=== PATIENT | male | born 1960 | race Caucasian/White ===

== ENCOUNTER → 2022-08-24 | Outpatient (CLI) | payer OTHER ==
--- NOTE | 2022-08-24 16:51 | CT ---
EXAMINATION TYPE: CT angio neck DATE OF EXAM: 08/24/2022 HISTORY: Bilateral Carotid Stenosis. COMPARISON: None CT DLP: 231.8 mGycm. Automated Exposure Control for Dose Reduction was Utilized. TECHNIQUE: CTA scan of the neck is performed with IV Contrast, patient injected with 65cc mL of Isov ue 370, axial images are obtained, coronal and sagittal reformatted images are reviewed. Three-D radha nstructed images are created on an independent workstation and reviewed. Source images are reviewed. FINDINGS: Carotid/Vascular Structures: There is a three-vessel arch. Vertebral arteries are codominant. Common carotid arteries bifurcate into internal and external carotid vessels. Atheromatous plaque and calcif ications at the carotid bifurcations. On the left this measures 64%. On the 2-D reconstructed images this appears more severe. Correlate with patient's symptoms. On the right this measures 36%. Cervical of [place]: Vertebral basilar system appears normal. Posterior cerebral vasculature is unrema rkable. Internal carotid arteries bifurcate normally into A1 and M1 segments. A2 segments are normal. The anterior communicating artery is widely patent. Left Posterior communicating artery is absent. R ight posterior communicating artery is patent. IMPRESSION: 1. Moderate stenosis through the right internal carotid artery between 50 and 69%. 2. Mild narrowing of less than 50% within the left internal carotid artery origin. 3. Normal [place] of [place] NASCET criteria was used in interpretation of this exam?
== END | disposition home or self-care (01) ==
LOC: RADCTMAIN 14:17
PROVIDERS: ATTEND Internal Medicine Cardiovascular Disease
DX: I65.23 Occlusion and stenosis of bilateral carotid arteries (principal)
CPT/HCPCS: 70498; Q9967

== ENCOUNTER 2022-08-26 08:49 | Day surgery (SDC) | payer OTHER ==
[~2022-08-26 08:49] MED LIST: ALPRAZolam 0.25 MG TAB PO PRN; ALPRAZolam 0.5 MG TAB PO PRN; ASPIRIN 325 MG TAB PO STA; ATORVASTATIN 80 MG TAB PO STA; HEPARIN SODIUM,PORCINE 10,000 UNIT in SODIUM CHLORIDE 0.9% 1,000 ML IRRIGATION PRN; HEPARIN SODIUM,PORCINE 2,500 UNIT in SODIUM CHLORIDE 0.9% 250 ML IRRIGATION PRN; NITROGLYCERIN SL TABS 0.4 MG TAB SUBLINGUAL PRN; SODIUM CHLORIDE 0.9% 1,000 ML in EMPTY BAG 1 BAG IV SCH
[2022-08-26 09:06] VITALS: TEMP 98.5
[2022-08-26 09:16] LABS: Basophils # (A) 0.1 k/uL (0-0.2); Basophils % (A) 1 %; Eosinophils # (A) 0.3 k/uL (0-0.7); Eosinophils % (A) 5 %; HCT 37.3 % (39.0-53.0); HGB 12.6 gm/dL (13.0-17.5); Lymphocytes # (A) 1.5 k/uL (1.0-4.8); Lymphocytes % (A) 24 %; MCHC 33.7 g/dL (31.0-37.0); MCV 91.8 fL (80.0-100.0); Mean Platelet Volume 7.4; Monocytes # (A) 0.4 k/uL (0-1.0); Monocytes % (A) 6 %; Neutrophils # (A) 4.1 k/uL (1.3-7.7); Neutrophils % (A) 63 %; Platelet Count 248 k/uL (150-450); RBC 4.06 m/uL (4.30-5.90); RDW 12.6 % (11.5-15.5); WBC 6.5 k/uL (3.8-10.6)
[2022-08-26 09:35] LABS: African American GFR (CKD) >90 (>60 ml/min/1.73 sqM); Anion Gap 8 mmol/L; Blood Urea Nitrogen 14 mg/dL (9-20); Calcium 8.9 mg/dL (8.4-10.2); Carbon Dioxide 29 mmol/L (22-30); Chloride 99 mmol/L (98-107); Glucose 101 mg/dL (74-99); Non-African American GFR(CKD) >90 (>60 ml/min/1.73 sqM); Potassium 4.2 mmol/L (3.5-5.1); Sodium 136 mmol/L (137-145)
[2022-08-26] MEDS ORDERED: fentaNYL (PF) 50 MCG/ML 2 ML AMP IV ONE (10:31)
[2022-08-26] MEDS ORDERED: MIDAZOLAM 2 MG/2 ML VIAL IV ONE (10:31)
[2022-08-26] MEDS ORDERED: LIDOCAINE 1% INJ 10MG/ML (5 ML VIAL-PF) SQ ONE (10:33)
[2022-08-26] MEDS ORDERED: VERAPAMIL SYRINGE (5 MG/10 ML) INTRAARTER ONE (10:37)
[2022-08-26] MEDS ORDERED: HEPARIN SODIUM 1,000 UN/ML (10ML VL) IV ONE (10:41)
[2022-08-26] MEDS ORDERED: IOPAMIDOL-370 100ML BTL INJ ONE (10:47)
[2022-08-26] MEDS ORDERED: RX INFO: IV CONTRAST WAS GIVEN 1 EACH MISC MISCELLANE PRN (11:03)
[2022-08-26] MEDS ORDERED: SODIUM CHLORIDE 0.9% 1,000 ML IV SCH (11:15)
[2022-08-26 12:51] VITALS: RESP 16
--- NOTE | 2022-08-26 14:31 | CC ---
CARDIAC CATHETERIZATION REPORT HISTORY OF PRESENT ILLNESS: This is a 61-year-old gentleman who was referred to us for evaluation of chest pain, underwent a stress test that showed ischemia in LAD distribution, due to which I advised him to undergo cardiac catheterization and explained to him risks, benefits and alternatives. PROCEDURE NOTE: After obtaining informed consent, left heart catheterization and coronary angiogram were performed via the right radial artery using standard Natalie catheters. The patient tolerated the procedure well without any obvious immediate complications, received moderate conscious sedation. Total sedation time was 19 minutes. A TR band was used for hemostasis at the end of the procedure. Right radial artery access was obtained using Seldinger technique. Catheters and wires were floated into the ascending aorta under fluoroscopic guidance. The patient received verapamil and heparin per protocol. FINDINGS: HEMODYNAMICS: 1. Left ventricular end-diastolic pressure is 8 to 12 mm. There is no significant gradient across the aortic valve. 2. Left ventriculogram: Left ventriculogram is not performed. ANGIOGRAPHIC DATA: Right coronary artery is a large dominant vessel and is free of significant stenosis. Left main coronary artery is free of disease, it divides into left anterior descending coronary artery and circumflex coronary artery. LAD shows mild nonobstructive plaque in its midportion. Circumflex coronary artery and its branches are free of significant stenosis. CONCLUSION: 1. Mild nonobstructive coronary artery disease. 2. Falsely positive stress test. PLAN: The patient's management is going to be in the form of risk factor modification, optimal medical therapy. I used a total of 45 mL of contrast. MMODL / IJN: [id number] /
[2022-08-26 14:58] VITALS: BP 133/66; PULSE 60
== END 2022-08-26 15:00 | disposition home or self-care (01) ==
LOC: CATHCVL 08:49
PROVIDERS: ATTEND Internal Medicine Cardiovascular Disease
DX: I25.10 Atherosclerotic heart disease of native coronary artery without angina pectoris (principal); I10 Essential (primary) hypertension; F17.210 Nicotine dependence, cigarettes, uncomplicated; Z79.82 Long term (current) use of aspirin; Z79.899 Other long term (current) drug therapy
CPT/HCPCS: 93458; 80048; 85025; C1769; C1894; J2250; J2001; J3010; J1644; Q9967

== ENCOUNTER → 2023-03-19 | Outpatient (CLI) | payer OTHER ==
--- NOTE | 2023-03-19 12:39 | CT ---
EXAMINATION TYPE: CT angio neck DATE OF EXAM: 03/19/2023 HISTORY: carotid stenosis COMPARISON: 08/24/2022 CT DLP: 397 mGycm. Automated Exposure Control for Dose Reduction was Utilized. TECHNIQUE: CTA scan of the head and neck is performed with IV Contrast, patient injected with 100 mL of Isovue 370, axial images are obtained, coronal and sagittal reformatted images are reviewed. 3D r econstructed images are created on an independent workstation and reviewed. FINDINGS: The brachiocephalic origins are widely patent. There are heavily calcified plaques in the carotid bifurcations within the neck resulting in a severe greater than 70% proximal right internal carotid artery stenosis and a mild less then 50% stenosis o f the proximal left internal carotid artery. IMPRESSION: 1. Severe greater than 70% stenosis proximal right internal carotid artery. This appears to have wors ened in the interval compared to previous. 2. Stable less than 50% left internal carotid artery stenosis. NASCET criteria was used in interpretation of this exam?
== END | disposition home or self-care (01) ==
LOC: RADCTMAIN 11:20
PROVIDERS: ATTEND Internal Medicine Cardiovascular Disease
DX: I65.23 Occlusion and stenosis of bilateral carotid arteries (principal)
CPT/HCPCS: 70498; Q9967